=== PATIENT | female | born 1955 | race Hispanic/Latino ===

== ENCOUNTER 2018-01-17 16:24 | Emergency (ER) | payer BC, MEDICARE ==
[2018-01-17] MEDS ORDERED: ACETAMINOPHEN-CODEINE 300/30MG TAB ONE (17:37)
[2018-01-17] MEDS ORDERED: DEXAMETHASONE SOD PHOSPHATE 10MG/ML 1ML VIAL ONE (17:37)
[2018-01-17] MEDS ORDERED: CYCLOBENZAPRINE HCL 10 MG TABLET ONE (17:37)
== END 2018-01-17 18:56 | disposition home or self-care (01) ==
LOC: EDH 16:24
DX: M54.32 Sciatica, left side (principal); J45.909 Unspecified asthma, uncomplicated; I10 Essential (primary) hypertension; E78.5 Hyperlipidemia, unspecified; K21.9 Gastro-esophageal reflux disease without esophagitis
CPT/HCPCS: 96372; 99283; J1100

== ENCOUNTER 2018-09-03 23:54 | Emergency (ER) | payer BC, MEDICARE, OTHER ==
[2018-09-04 00:23] LABS: APPEARANCE,URINE Clear (CLEAR); BILIRUBIN,URINE Negative (NEGATIVE); COLOR,URINE Yellow (YELLOW); GLUCOSE, URINE (UA) Negative (NEGATIVE); KETONES,URINE Negative (NEGATIVE); LEUKOCYTE ESTERASE ,URINE Moderate (NEGATIVE); NITRATE,URINE Negative (NEGATIVE); OCCULT BLOOD,URINE Negative (NEGATIVE); PROTEIN,URINE Negative (NEGATIVE); UROBILINOGEN,URINE 0.2 mg/dL (0.2-1.0)
[2018-09-04 00:32] LABS: EOSINOPHILS % (AUTO) 1.7 % (0.0-8.0); HEMATOCRIT 33.9 % (36-48); LYMPHOCYTES % (AUTO) 25.3 % (21.0-51.0); MEAN CORPUSCULAR HEMOGLOBIN 27.5 pg (27.0-33.0); MEAN CORPUSCULAR HGB CONC 33.2 g/dL (32.0-36.0); MEAN CORPUSCULAR VOLUME 82.9 fL (79-99); MONOCYTES % (AUTO) 8.1 % (3.0-13.0); NEUTROPHILS % (AUTO) 63.9 % (40.0-77.0); PLATELET COUNT (AUTO) 334 K/uL (130-400); RED BLOOD CELL COUNT(AUTO) 4.09 MIL/uL (4.00-5.50); RED CELL DISTRIBUTION WIDTH 13.7 % (11.0-15.5); WHITE BLOOD COUNT (AUTO) 9.4 K/uL (4.8-10.8)
[2018-09-04 00:37] LABS: BACTERIA,URINE Rare /HPF (None Seen); RBC,URINE 0-1 /HPF (0-1); SQUAMOUS EPITHELIAL CELL,UR Moderate /HPF (0-2)
[2018-09-04 00:53] LABS: CREATININE 1.1 mg/dL (0.5-1.5)
[2018-09-04 00:57] LABS: ALBUMIN 3.3 g/dL (3.5-5.0); BILIRUBIN,TOTAL 0.3 mg/dL (0.2-1.0); TOTAL PROTEIN, SERUM 7.9 g/dL (6.0-8.3)
[2018-09-04] MEDS ORDERED: DEXAMETHASONE SOD PHOSPHATE 4 MG/ML 1ML VIAL ONE (01:00)
[2018-09-04] MEDS ORDERED: SODIUM CHLORIDE 0.9% 1000ML 1,000 ML IV ONE (01:00)
[2018-09-04] MEDS ORDERED: IPRATROPIUM/ALBUTEROL SULFATE 3 ML SOLUTION IH ONE (01:09)
[2018-09-04] MEDS ORDERED: MORPHINE SULFATE 4 MG/1ML SYG ONE (01:32)
[2018-09-04] MEDS ORDERED: METRONIDAZOLE 500 MG TABLET ONE (02:19)
[2018-09-04] MEDS ORDERED: LEVOFLOXACIN 500 MG TABLET ONE (02:20)
[2018-09-04] MEDS ORDERED: HYDROCODONE/ACETAMINOPHEN 10/325 MG TAB ONE (02:21)
== END 2018-09-04 02:43 | disposition home or self-care (01) ==
LOC: EDH 23:54
DX: K57.92 Diverticulitis of intestine, part unspecified, without perforation or abscess without bleeding (principal); K21.9 Gastro-esophageal reflux disease without esophagitis; I10 Essential (primary) hypertension; J45.909 Unspecified asthma, uncomplicated; Z98.890 Other specified postprocedural states
CPT/HCPCS: 36415; 71045; 74176; 80053; 81001; 83690; 85025; 94640; 96361; 96374; 96375; 99284; J1100; J2270; J7030

== ENCOUNTER → 2018-10-04 | Outpatient (CLI) | payer OTHER ==
[~2018-10-04] MED LIST: IOHEXOL 350 MG/ML 100ML INFUS..BTL IV ONE
== END | disposition home or self-care (01) ==
LOC: RAH 09:39
PROVIDERS: ATTEND Internal Medicine Gastroenterology
DX: K57.30 Diverticulosis of large intestine without perforation or abscess without bleeding (principal); C18.7 Malignant neoplasm of sigmoid colon; K86.89 Other specified diseases of pancreas; K76.89 Other specified diseases of liver
CPT/HCPCS: 71270; 74178; Q9967

== ENCOUNTER 2018-11-29 21:44 | Observation (INO) | payer OTHER ==
[~2018-11-29] VITALS: Ht 154.9 cm; Wt 101.6 kg
[2018-11-29 22:29] LABS: APPEARANCE,URINE SL CLOUDY (CLEAR); BILIRUBIN,URINE NEGATIVE (NEGATIVE); COLOR,URINE YELLOW (YELLOW); GLUCOSE, URINE (UA) NEGATIVE (NEGATIVE); KETONES,URINE NEGATIVE (NEGATIVE); LEUKOCYTE ESTERASE ,URINE LARGE (NEGATIVE); NITRATE,URINE NEGATIVE (NEGATIVE); OCCULT BLOOD,URINE TRACE-LYSED (NEGATIVE); PH,URINE 5.5 (5.0-8.0); PROTEIN,URINE TRACE mg/dL (NEGATIVE)
[2018-11-29] MEDS ORDERED: ZOSYN 3.375GM+NS 50ML 50 ML IV ONE (22:52)
[2018-11-29] MEDS ORDERED: ACETAMINOPHEN EXTRA STRENGTH 500 MG TABLET ONE (22:52)
[2018-11-29 22:56] LABS: BASOPHILS % (AUTO) 1.1 % (0.0-5.0); EOSINOPHILS % (AUTO) 0.4 % (0.0-8.0); HEMATOCRIT 26.3 % (36-48); LYMPHOCYTES % (AUTO) 14.1 % (21.0-51.0); MEAN CORPUSCULAR VOLUME 81.8 fL (79-99); NEUTROPHILS % (AUTO) 77.4 % (40.0-77.0); PLATELET COUNT (AUTO) 481 K/uL (130-400); RED BLOOD CELL COUNT(AUTO) 3.21 MIL/uL (4.00-5.50); RED CELL DISTRIBUTION WIDTH 14.5 % (11.0-15.5); WHITE BLOOD COUNT (AUTO) 10.5 K/uL (4.8-10.8)
[2018-11-29 23:01] LABS: BACTERIA,URINE Few /HPF (None Seen)
[2018-11-29 23:11] LABS: INR 1.05 (0.85-1.15); PARTIAL THROMBOPLASTIN TIME 32.7 SEC (26.3-35.5)
[2018-11-29 23:12] LABS: CARBON DIOXIDE 29 mmol/L (21-32); CHLORIDE 96 mmol/L (101-111); CREATININE 1.3 mg/dL (0.5-1.5); GLOMERULAR FILTR. RATE CALC 44 mL/min (>60); GLUCOSE,RANDOM 116 mg/dL (70-105); POTASSIUM 3.1 mmol/L (3.5-5.1); SODIUM SERUM 135 mmol/L (136-145); UREA NITROGEN, BLOOD 26 mg/dL (7-18)
[2018-11-29] MEDS ORDERED: IOHEXOL-350 75 ML VIAL IV ONE (23:21)
[2018-11-29 23:22] LABS: ALANINE AMINOTRANSFERASE 41 U/L (12-78); ALBUMIN 2.6 g/dL (3.5-5.0); ASPARTATE AMINOTRANSFERASE 60 U/L (10-37); BILIRUBIN,TOTAL 0.3 mg/dL (0.2-1.0); CREATINE KINASE, TOTAL 14 U/L (21-232); MYOGLOBIN 31 ng/mL (10-92); TOTAL PROTEIN, SERUM 7.7 g/dL (6.0-8.3); TROPONIN I < 0.04 ng/mL (0.00-0.06)
[2018-11-30 08:12] VITALS: BP 125/74
[2018-11-30 08:59] LABS: BASOPHILS % (AUTO) 0.6 % (0.0-5.0); EOSINOPHILS % (AUTO) 0.4 % (0.0-8.0); HEMATOCRIT 24.2 % (36-48); LYMPHOCYTES % (AUTO) 11.3 % (21.0-51.0); MEAN CORPUSCULAR HEMOGLOBIN 27.9 pg (27.0-33.0); MEAN CORPUSCULAR HGB CONC 34.3 g/dL (32.0-36.0); MEAN CORPUSCULAR VOLUME 81.4 fL (79-99); MONOCYTES % (AUTO) 6.3 % (3.0-13.0); NEUTROPHILS % (AUTO) 81.4 % (40.0-77.0); PLATELET COUNT (AUTO) 422 K/uL (130-400); RED BLOOD CELL COUNT(AUTO) 2.97 MIL/uL (4.00-5.50); RED CELL DISTRIBUTION WIDTH 14.7 % (11.0-15.5)
[2018-11-30 09:15] LABS: ALBUMIN 2.4 g/dL (3.5-5.0); BILIRUBIN,TOTAL 0.5 mg/dL (0.2-1.0); CREATININE 1.2 mg/dL (0.5-1.5); POTASSIUM 3.1 mmol/L (3.5-5.1); TOTAL PROTEIN, SERUM 7.3 g/dL (6.0-8.3)
[2018-11-30] MEDS ORDERED: HYDR25TA PO (09:26)
[2018-11-30] MEDS ORDERED: FERR325T22 PO (09:26)
[2018-11-30] MEDS ORDERED: TYL3B PO (09:26)
[2018-11-30 11:34] VITALS: BP 130/54
[2018-11-30] MEDS: METRONIDAZOLE 500MG/100ML BAG 100 ML IVPB SCH ×2 (12:25→18:51)
[2018-11-30] MEDS: ZOSYN 3.375GM+NS 50ML 50 ML IV SCH ×2 (12:25→21:04)
[2018-11-30 16:23] VITALS: BP 98/60
[2018-11-30] MEDS ORDERED: ONDANSETRON HCL 4 MG/2 ML VIAL IVP PRN (19:15)
[2018-11-30 19:30] VITALS: BP 120/62
[2018-11-30] MEDS: SODIUM CHLORIDE 0.9% 1000ML 1,000 ML IV SCH (21:04)
[2018-11-30] MEDS: MORPHINE SULFATE 2 MG/ML 1ML SYG IVP PRN (22:40)
[2018-11-30] MEDS ORDERED: POTASSIUM CHLORIDE 10MEQ/100ML 100 ML IV ONE (23:09)
[2018-11-30] MEDS ORDERED: LIDOCAINE HCL-MPF 1% 2ML VIAL ONE (23:09)
[2018-11-30 23:12] VITALS: BP 111/57
[2018-12-01] MEDS ORDERED: POTASSIUM CHLORIDE 20MEQ/100ML 100 ML IV PRN (00:15)
[2018-12-01] MEDS ORDERED: POTASSIUM CHLORIDE 20 MEQ ERTAB PO PRN (00:15)
[2018-12-01] MEDS ORDERED: POTASSIUM CHLORIDE 10% ELIXIR 20 MEQ/15 ML UDCUP PO PRN (00:15)
[2018-12-01] MEDS ORDERED: LIDOCAINE HCL-MPF 1% 2ML VIAL IVP PRN (00:15)
[2018-12-01] MEDS: METRONIDAZOLE 500MG/100ML BAG 100 ML IVPB SCH ×3 (02:00→17:02)
[2018-12-01 04:20] VITALS: BP 115/60
[2018-12-01 05:29] LABS: CREATININE 1.1 mg/dL (0.5-1.5); POTASSIUM 3.3 mmol/L (3.5-5.1)
[2018-12-01 05:33] LABS: HEMATOCRIT 22.4 % (36-48); MEAN CORPUSCULAR HGB CONC 33.9 g/dL (32.0-36.0); MEAN CORPUSCULAR VOLUME 82.6 fL (79-99); PLATELET COUNT (AUTO) 394 K/uL (130-400); RED BLOOD CELL COUNT(AUTO) 2.71 MIL/uL (4.00-5.50); RED CELL DISTRIBUTION WIDTH 14.4 % (11.0-15.5); WHITE BLOOD COUNT (AUTO) 8.6 K/uL (4.8-10.8)
[2018-12-01] MEDS: ZOSYN 3.375GM+NS 50ML 50 ML IV SCH ×3 (06:03→21:19)
[2018-12-01] MEDS: SODIUM CHLORIDE 0.9% 1000ML 1,000 ML IV SCH (06:04)
[2018-12-01] MEDS: MORPHINE SULFATE 2 MG/ML 1ML SYG IVP PRN ×4 (07:15→21:30)
[2018-12-01 08:00] VITALS: BP 129/73
[2018-12-01] MEDS: FAMOTIDINE/PF 20 MG/2 ML VIAL IV SCH (08:55)
[2018-12-01] MEDS: ENOXAPARIN SODIUM 30 MG/0.3 ML SQ SCH (08:55)
[2018-12-01] MEDS ORDERED: PANTOPRAZOLE 40 MG/VIAL IVP SCH (09:00)
[2018-12-01 12:00] VITALS: BP 133/62
[2018-12-01 12:43] LABS: HEMATOCRIT 24.1 % (36-48)
[2018-12-01 16:00] VITALS: BP 118/62
[2018-12-01 19:30] VITALS: BP 104/61
[2018-12-01 20:21] LABS: % IRON SATURATION 8.9 % (22-44)
[2018-12-02 00:06] VITALS: BP 107/61
[2018-12-02] MEDS: METRONIDAZOLE 500MG/100ML BAG 100 ML IVPB SCH ×2 (02:22→10:46)
[2018-12-02 04:00] VITALS: BP 148/64
[2018-12-02 04:46] LABS: BASOPHILS % (AUTO) 1.1 % (0.0-5.0); EOSINOPHILS % (AUTO) 1.2 % (0.0-8.0); HEMATOCRIT 24.8 % (36-48); LYMPHOCYTES % (AUTO) 19.7 % (21.0-51.0); MEAN CORPUSCULAR HEMOGLOBIN 28.1 pg (27.0-33.0); MEAN CORPUSCULAR HGB CONC 33.9 g/dL (32.0-36.0); MEAN CORPUSCULAR VOLUME 82.9 fL (79-99); MONOCYTES % (AUTO) 7.4 % (3.0-13.0); NEUTROPHILS % (AUTO) 70.6 % (40.0-77.0); PLATELET COUNT (AUTO) 474 K/uL (130-400); RED BLOOD CELL COUNT(AUTO) 2.99 MIL/uL (4.00-5.50); RED CELL DISTRIBUTION WIDTH 14.5 % (11.0-15.5); WHITE BLOOD COUNT (AUTO) 7.4 K/uL (4.8-10.8)
[2018-12-02] MEDS: ZOSYN 3.375GM+NS 50ML 50 ML IV SCH ×2 (05:00→14:36)
[2018-12-02 05:06] LABS: POTASSIUM 3.7 mmol/L (3.5-5.1)
[2018-12-02 08:00] VITALS: BP 121/64
[2018-12-02] MEDS: FAMOTIDINE/PF 20 MG/2 ML VIAL IV SCH (10:50)
[2018-12-02 11:00] VITALS: BP 119/68
[2018-12-02] MEDS: ENOXAPARIN SODIUM 30 MG/0.3 ML SQ SCH (11:04)
[2018-12-02] MEDS ORDERED: FERROUS SULFATE 325 MG TABLET.DR PO SCH (14:00)
[2018-12-02 16:00] VITALS: BP 126/66
== END 2018-12-02 19:40 | disposition home or self-care (01) ==
LOC: EDH 21:44 → EDHIP 11-30 07:10 → 4CH 11-30 07:52
PROVIDERS: ADMIT Internal Medicine; ATTEND Internal Medicine
DX: K62.5 Hemorrhage of anus and rectum (principal); A41.9 Sepsis, unspecified organism; D64.9 Anemia, unspecified; E66.01 Morbid (severe) obesity due to excess calories; E78.5 Hyperlipidemia, unspecified; I10 Essential (primary) hypertension; J45.909 Unspecified asthma, uncomplicated; K57.91 Diverticulosis of intestine, part unspecified, without perforation or abscess with bleeding; K64.8 Other hemorrhoids; N39.0 Urinary tract infection, site not specified; Z85.048 Personal history of other malignant neoplasm of rectum, rectosigmoid junction, and anus; Z90.49 Acquired absence of other specified parts of digestive tract
CPT/HCPCS: 36415 ×4; 71045; 74021; 74177; 80048 ×2; 80053 ×2; 81001; 82550; 83540; 83550; 83605; 83874; 84484; 85014; 85018; 85025 ×3; 85027; 85610; 85730; 87040 ×2; 87088; 93005; 96365; 96366 ×3; 96368; 96372; 96375 ×2; 96376 ×2; 99284; G0378 ×60; J1650 ×2; J2405; J2543 ×8; J3480; J3490 ×12; J7030; Q9967; C9113

== ENCOUNTER 2018-12-13 07:25 | Day surgery (SDC) | payer OTHER ==
[2018-12-13] VITALS (25 sets, daily range): BP systolic 103–136; BP diastolic 47–88
[~2018-12-13] VITALS: Ht 154.3 cm; Wt 101.2 kg
[~2018-12-13 07:25] MED LIST changes: +ALBU0.63 IH; +FERR325T22 PO; +HYDR25TA PO; -IOHEXOL 350 MG/ML 100ML INFUS..BTL IV ONE; +SODIUM CHLORIDE 0.9% 1000ML 1,000 ML IV ONE; +STOOL SOFTNER PO; +TYL3B PO; +[UNRECOGNIZED DRUG - CODE] PO
[2018-12-13] MEDS ORDERED: PROPOFOL 10 MG/ML 20ML VIAL IV ONE (09:26)
[2018-12-13] MEDS ORDERED: LEVOFLOXACIN 750 MG/D5W 150 ML 150 ML IV SCH (10:00)
[2018-12-13] MEDS ORDERED: ZOSYN 3.375GM+NS 50ML 50 ML IV SCH (10:45)
== END 2018-12-13 15:01 | disposition home or self-care (01) ==
LOC: DAH 07:25 → ENDO 07:25
PROVIDERS: ATTEND Internal Medicine
DX: K86.2 Cyst of pancreas (principal); K31.89 Other diseases of stomach and duodenum; K57.30 Diverticulosis of large intestine without perforation or abscess without bleeding; K29.30 Chronic superficial gastritis without bleeding; C18.7 Malignant neoplasm of sigmoid colon; D64.9 Anemia, unspecified; I10 Essential (primary) hypertension; K64.9 Unspecified hemorrhoids; J45.909 Unspecified asthma, uncomplicated; K52.9 Noninfective gastroenteritis and colitis, unspecified; M19.90 Unspecified osteoarthritis, unspecified site; Z98.890 Other specified postprocedural states; Z79.899 Other long term (current) drug therapy
CPT/HCPCS: 36415; 43238; 82150; 82378; 88108; 88305; A4215; A4606; J2543; J2704; J7030; J1956

== ENCOUNTER 2018-12-15 22:10 | Emergency (ER) | payer OTHER ==
[~2018-12-15 22:10] MED LIST changes: -SODIUM CHLORIDE 0.9% 1000ML 1,000 ML IV ONE
[2018-12-15 22:47] LABS: APPEARANCE,URINE Clear (CLEAR); BILIRUBIN,URINE Small (NEGATIVE); COLOR,URINE Dark Yellow (YELLOW); GLUCOSE, URINE (UA) Negative (NEGATIVE); KETONES,URINE Trace mg/dL (NEGATIVE); LEUKOCYTE ESTERASE ,URINE Moderate (NEGATIVE); NITRATE,URINE Negative (NEGATIVE); OCCULT BLOOD,URINE Negative (NEGATIVE); PROTEIN,URINE Trace mg/dL (NEGATIVE)
[2018-12-15 22:59] LABS: RBC,URINE 0-1 /HPF (0-1)
[2018-12-15 23:00] LABS: BACTERIA,URINE Few /HPF (None Seen); MUCUS,URINE Moderate LPF (None Seen); SQUAMOUS EPITHELIAL CELL,UR Moderate /HPF (0-2)
[2018-12-15 23:17] LABS: CARBON DIOXIDE 28 mmol/L (21-32); CHLORIDE 98 mmol/L (101-111); CREATININE 1.1 mg/dL (0.5-1.5); GLOMERULAR FILTR. RATE CALC 53 mL/min (>60); GLUCOSE,RANDOM 127 mg/dL (70-105); POTASSIUM 3.8 mmol/L (3.5-5.1); SODIUM SERUM 135 mmol/L (136-145); UREA NITROGEN, BLOOD 22 mg/dL (7-18)
[2018-12-15 23:28] LABS: ALANINE AMINOTRANSFERASE 15 U/L (12-78); ALBUMIN 2.9 g/dL (3.5-5.0); ASPARTATE AMINOTRANSFERASE 16 U/L (10-37); BASOPHILS % (AUTO) 1.1 % (0.0-5.0); BILIRUBIN,TOTAL 0.5 mg/dL (0.2-1.0); CREATINE KINASE, TOTAL 8 U/L (21-232); EOSINOPHILS % (AUTO) 0.3 % (0.0-8.0); MEAN CORPUSCULAR HEMOGLOBIN 27.1 pg (27.0-33.0); MEAN CORPUSCULAR HGB CONC 33.3 g/dL (32.0-36.0); MEAN CORPUSCULAR VOLUME 81.6 fL (79-99); MYOGLOBIN 25 ng/mL (10-92); NEUTROPHILS % (AUTO) 76.6 % (40.0-77.0); PLATELET COUNT (AUTO) 398 K/uL (130-400); TOTAL PROTEIN, SERUM 7.9 g/dL (6.0-8.3); TROPONIN I < 0.04 ng/mL (0.00-0.06); WHITE BLOOD COUNT (AUTO) 10.3 K/uL (4.8-10.8)
[2018-12-15] MEDS ORDERED: ZOSYN 3.375GM+NS 50ML 50 ML IV ONE (23:30)
[2018-12-15 23:33] LABS: INR 1.09 (0.85-1.15); PARTIAL THROMBOPLASTIN TIME 31.5 SEC (26.3-35.5); PROTHROMBIN TIME 11.4 SEC (9.6-11.6)
[2018-12-16] MEDS ORDERED: IOHEXOL-350 75 ML VIAL IV ONE (00:08)
[2018-12-16] MEDS ORDERED: FENTANYL CITRATE PF 50 MCG/1 ML 2ML VIAL ONE ×2 (01:42→05:39)
[2018-12-16] MEDS ORDERED: VANCOMYCIN 1GM+NS 250ML 250 ML IV ONE (02:54)
== END 2018-12-16 05:47 ==
LOC: EDH 22:10
DX: N73.9 Female pelvic inflammatory disease, unspecified (principal); M70.11 Bursitis, right hand; J45.909 Unspecified asthma, uncomplicated; K21.9 Gastro-esophageal reflux disease without esophagitis; E78.5 Hyperlipidemia, unspecified; I10 Essential (primary) hypertension; Z88.1 Allergy status to other antibiotic agents; Z85.038 Personal history of other malignant neoplasm of large intestine
CPT/HCPCS: 36415; 71045; 73030; 73060; 74177; 80053; 81001; 82550; 83605; 83874; 84484; 85025; 85610; 85730; 87040 ×2; 87088; 93005; 96365; 96366; 96367; 96375; 96376; 99285; J2543; J3010 ×2; J3370; Q9967

== ENCOUNTER → 2019-04-26 | Outpatient (CLI) | payer OTHER ==
[~2019-04-26] MED LIST changes: +IOHEXOL-350 75 ML VIAL IV ONE
== END | disposition home or self-care (01) ==
LOC: RAH 07:27
PROVIDERS: ATTEND Internal Medicine Gastroenterology
DX: K57.30 Diverticulosis of large intestine without perforation or abscess without bleeding (principal); K86.2 Cyst of pancreas; K76.89 Other specified diseases of liver
CPT/HCPCS: 74178; Q9967

== ENCOUNTER → 2019-06-09 | Outpatient (CLI) | payer OTHER ==
[~2019-06-09] MED LIST changes: -IOHEXOL-350 75 ML VIAL IV ONE
== END | disposition home or self-care (01) ==
LOC: RAH 10:16
PROVIDERS: ATTEND Internal Medicine
DX: M99.13 Subluxation complex (vertebral) of lumbar region (principal); M54.16 Radiculopathy, lumbar region; M25.78 Osteophyte, vertebrae
CPT/HCPCS: 72100

== ENCOUNTER → 2019-11-03 | Outpatient (CLI) | payer OTHER ==
[~2019-11-03] MED LIST changes: +GADODIAMIDE 10 MMOL/20 ML VIAL IV ONE; +[UNRECOGNIZED DRUG - CODE] PO; -[UNRECOGNIZED DRUG - CODE] PO
== END | disposition home or self-care (01) ==
LOC: RAH 07:48
PROVIDERS: ATTEND Internal Medicine Gastroenterology
DX: K86.2 Cyst of pancreas (principal)
CPT/HCPCS: 74183; A9579

== ENCOUNTER 2020-03-25 05:41 | Emergency (ER) | payer OTHER ==
[~2020-03-25 05:41] MED LIST changes: -GADODIAMIDE 10 MMOL/20 ML VIAL IV ONE
[2020-03-25] MEDS ORDERED: MORPHINE SULFATE 4 MG/1ML SYG ONE (06:25)
[2020-03-25 08:00] LABS: ALBUMIN 3.4 g/dL (3.5-5.0); BILIRUBIN,TOTAL 0.2 mg/dL (0.2-1.0); CREATININE 1.3 mg/dL (0.5-1.5); POTASSIUM 3.2 mmol/L (3.5-5.1); TOTAL PROTEIN, SERUM 7.7 g/dL (6.0-8.3)
[2020-03-25 09:23] LABS: BASOPHILS % (AUTO) 0.6 % (0.0-5.0); EOSINOPHILS % (AUTO) 0.9 % (0.0-8.0); LYMPHOCYTES % (AUTO) 18.5 % (21.0-51.0); MEAN CORPUSCULAR HEMOGLOBIN 28.5 pg (27.0-33.0); MEAN CORPUSCULAR HGB CONC 33.2 g/dL (32.0-36.0); MEAN CORPUSCULAR VOLUME 85.9 fL (79-99); MONOCYTES % (AUTO) 5.3 % (3.0-13.0); NEUTROPHILS % (AUTO) 74.4 % (40.0-77.0); PLATELET COUNT (AUTO) 315 K/uL (130-400); RED BLOOD CELL COUNT(AUTO) 3.96 MIL/uL (4.00-5.50); RED CELL DISTRIBUTION WIDTH 13.5 % (11.0-15.5); WHITE BLOOD COUNT (AUTO) 11.2 K/uL (4.8-10.8)
[2020-03-25] MEDS ORDERED: KETOROLAC TROMETHAMINE 30MG/ML ONE (09:54)
== END 2020-03-25 10:30 | disposition home or self-care (01) ==
LOC: EDH 05:41
DX: M10.071 Idiopathic gout, right ankle and foot (principal); J45.909 Unspecified asthma, uncomplicated; E78.5 Hyperlipidemia, unspecified; I10 Essential (primary) hypertension; Z88.1 Allergy status to other antibiotic agents
CPT/HCPCS: 36415; 73630; 80053; 84550; 85025; 96372 ×2; 99284; J1885; J2270

== ENCOUNTER → 2020-04-26 | Outpatient (CLI) | payer OTHER | END | disposition home or self-care (01) | LOC: RAH 13:20 | PROVIDERS: ATTEND Internal Medicine | DX: Z12.31 Encounter for screening mammogram for malignant neoplasm of breast (principal); N64.89 Other specified disorders of breast | CPT/HCPCS: 77067 ==

== ENCOUNTER 2020-08-29 20:33 | Emergency (ER) | payer OTHER ==
[2020-08-29] MEDS ORDERED: KETOROLAC TROMETHAMINE 60 MG/2 ML VIAL ONE (20:53)
[2020-08-29] MEDS ORDERED: HYDROCODONE/ACETAMINOPHEN 10/325 MG TAB ONE (20:54)
[2020-08-29] MEDS ORDERED: CYCLOBENZAPRINE HCL 10 MG TABLET ONE (20:54)
== END 2020-08-29 21:53 | disposition home or self-care (01) ==
LOC: EDH 20:33
DX: M54.42 Lumbago with sciatica, left side (principal); M51.36 Other intervertebral disc degeneration, lumbar region; J45.909 Unspecified asthma, uncomplicated; K21.9 Gastro-esophageal reflux disease without esophagitis; I10 Essential (primary) hypertension; E78.5 Hyperlipidemia, unspecified; Z88.1 Allergy status to other antibiotic agents
CPT/HCPCS: 72100; 96372; 99283; J1885

== ENCOUNTER 2020-12-08 08:56 | Emergency (ER) | payer OTHER ==
[2020-12-08] MEDS ORDERED: BENZONATATE 100 MG CAPSULE PO ONE (09:54)
== END 2020-12-08 10:41 | disposition home or self-care (01) ==
LOC: EDH 08:56
DX: J20.9 Acute bronchitis, unspecified (principal); J01.90 Acute sinusitis, unspecified; J45.901 Unspecified asthma with (acute) exacerbation; E78.5 Hyperlipidemia, unspecified; I10 Essential (primary) hypertension; Z88.1 Allergy status to other antibiotic agents; Z98.890 Other specified postprocedural states
CPT/HCPCS: 71046

== ENCOUNTER → 2020-12-09 | Outpatient (CLI) | payer OTHER ==
[~2020-12-09] MED LIST changes: +GADOTERATE MEGLUMINE 10 MMOL/20 ML VIAL IV ONE
== END | disposition home or self-care (01) ==
LOC: RAH 07:54
PROVIDERS: ATTEND Internal Medicine Gastroenterology
DX: K86.2 Cyst of pancreas (principal)
CPT/HCPCS: 74183; A9575

== ENCOUNTER 2021-01-21 09:35 | Day surgery (SDC) | payer OTHER ==
[2021-01-21] VITALS (7 sets, daily range): BP systolic 107–129; BP diastolic 57–74
[~2021-01-21] VITALS: Ht 160 cm; Wt 108.0 kg
[~2021-01-21 09:35] MED LIST changes: +ALLO100T PO; +CYAN250014 PO; -FERR325T22 PO; +FLUT16H NS; -GADOTERATE MEGLUMINE 10 MMOL/20 ML VIAL IV ONE; -HYDR25TA PO; +LACT10SO5 PO; +MULT-1203 PO; +SODIUM CHLORIDE 0.9% 1000ML 1,000 ML IV ONE; -STOOL SOFTNER PO; -TYL3B PO; -[UNRECOGNIZED DRUG - CODE] PO
[2021-01-21] MEDS ORDERED: LEVOFLOXACIN 500 MG/D5W 100 ML 100 ML ONE (11:19)
[2021-01-21] MEDS ORDERED: PROPOFOL 10 MG/ML 20ML VIAL IV ONE (11:20)
[2021-01-21] MEDS ORDERED: CLINDAMYCIN 600 MG/D5% WATER 50 ML IV ONE (11:27)
== END 2021-01-21 12:37 | disposition home or self-care (01) ==
LOC: DAH 09:35 → ENDO 09:35
PROVIDERS: ATTEND Internal Medicine Gastroenterology
DX: K86.2 Cyst of pancreas (principal); Z20.822 Contact with and (suspected) exposure to COVID-19; K57.30 Diverticulosis of large intestine without perforation or abscess without bleeding; I10 Essential (primary) hypertension; E66.9 Obesity, unspecified; K21.9 Gastro-esophageal reflux disease without esophagitis; M10.9 Gout, unspecified; M19.90 Unspecified osteoarthritis, unspecified site; D64.9 Anemia, unspecified; K59.00 Constipation, unspecified; Z79.01 Long term (current) use of anticoagulants; Z88.8 Allergy status to other drugs, medicaments and biological substances; Z80.0 Family history of malignant neoplasm of digestive organs; J45.909 Unspecified asthma, uncomplicated; Z98.890 Other specified postprocedural states; Z85.038 Personal history of other malignant neoplasm of large intestine; Z68.41 Body mass index [BMI] 40.0-44.9, adult
CPT/HCPCS: 36415; 43238; 82150; 82378; 87635; A4215 ×3; A4216; A4221; A4222; A4223; A4606; A4620; A4657; A4663; C9803; J1956; J2704; J3490; J7030

== ENCOUNTER 2021-04-06 01:38 | Emergency (ER) | payer OTHER ==
[~2021-04-06] VITALS: Ht 160 cm; Wt 108.4 kg
[~2021-04-06 01:38] MED LIST changes: -SODIUM CHLORIDE 0.9% 1000ML 1,000 ML IV ONE
[2021-04-06 07:45] LABS: BASOPHILS % (AUTO) 0.9 % (0.0-5.0); EOSINOPHILS % (AUTO) 3.2 % (0.0-8.0); HEMATOCRIT 33.2 % (36-48); LYMPHOCYTES % (AUTO) 35.7 % (21.0-51.0); MEAN CORPUSCULAR HEMOGLOBIN 27.4 pg (27.0-33.0); MEAN CORPUSCULAR HGB CONC 31.3 g/dL (32.0-36.0); MEAN CORPUSCULAR VOLUME 87.6 fL (79-99); MONOCYTES % (AUTO) 6.8 % (3.0-13.0); NEUTROPHILS % (AUTO) 53.2 % (40.0-77.0); PLATELET COUNT (AUTO) 277 K/uL (130-400); RED BLOOD CELL COUNT(AUTO) 3.79 MIL/uL (4.00-5.50); RED CELL DISTRIBUTION WIDTH 14.6 % (11.0-15.5); WHITE BLOOD COUNT (AUTO) 5.9 K/uL (4.8-10.8)
[2021-04-06] MEDS ORDERED: ONDANSETRON ODT 4MG TAB ONE (07:46)
[2021-04-06] MEDS ORDERED: MORPHINE 4 MG SYG ONE (07:47)
[2021-04-06 07:58] LABS: ALBUMIN 3.5 g/dL (3.5-5.0); BILIRUBIN,TOTAL 0.2 mg/dL (0.2-1.0); POTASSIUM 4.3 mmol/L (3.5-5.1); TOTAL PROTEIN, SERUM 7.6 g/dL (6.0-8.3)
[2021-04-06 08:05] VITALS: BP 142/84
== END 2021-04-06 08:01 | disposition home or self-care (01) ==
LOC: EDH 01:38
DX: M54.16 Radiculopathy, lumbar region (principal); M79.604 Pain in right leg; E66.01 Morbid (severe) obesity due to excess calories; G89.29 Other chronic pain; M54.5 Low back pain; I10 Essential (primary) hypertension; M10.9 Gout, unspecified; J45.909 Unspecified asthma, uncomplicated; Z79.899 Other long term (current) drug therapy; Z85.038 Personal history of other malignant neoplasm of large intestine; Z88.1 Allergy status to other antibiotic agents; Z68.41 Body mass index [BMI] 40.0-44.9, adult
CPT/HCPCS: 36415; 80053; 83735; 85025; 96372; 99283; J2270

== ENCOUNTER → 2021-09-22 | Outpatient (CLI) | payer OTHER ==
[~2021-09-22] MED LIST changes: +IOHEXOL-350 50ML VIAL IV ONE; +IOHEXOL-350 75 ML VIAL IV ONE
== END | disposition home or self-care (01) ==
LOC: RAH 07:49
PROVIDERS: ATTEND Internal Medicine Gastroenterology
DX: K86.2 Cyst of pancreas (principal); K57.30 Diverticulosis of large intestine without perforation or abscess without bleeding; K42.9 Umbilical hernia without obstruction or gangrene; K76.0 Fatty (change of) liver, not elsewhere classified; K76.89 Other specified diseases of liver; I72.8 Aneurysm of other specified arteries
CPT/HCPCS: 74170; Q9967 ×2

== ENCOUNTER → 2022-04-06 | Outpatient (CLI) | payer OTHER ==
[~2022-04-06] MED LIST changes: -IOHEXOL-350 50ML VIAL IV ONE; -IOHEXOL-350 75 ML VIAL IV ONE
== END | disposition home or self-care (01) ==
LOC: RAH 09:28
PROVIDERS: ATTEND Internal Medicine Gastroenterology
DX: K86.2 Cyst of pancreas (principal); K76.0 Fatty (change of) liver, not elsewhere classified; K76.89 Other specified diseases of liver
CPT/HCPCS: 76700

== ENCOUNTER → 2022-04-08 | Outpatient (CLI) | payer OTHER | END | disposition home or self-care (01) | LOC: RAH 08:12 | PROVIDERS: ATTEND Internal Medicine | DX: Z12.31 Encounter for screening mammogram for malignant neoplasm of breast (principal) | CPT/HCPCS: 77067 ==

== ENCOUNTER → 2023-07-07 | Outpatient (CLI) | payer OTHER ==
[~2023-07-07] MED LIST changes: +IOHEXOL-350 75 ML VIAL IV ONE
== END | disposition home or self-care (01) ==
LOC: RAH 08:26
PROVIDERS: ATTEND Internal Medicine Gastroenterology
DX: K86.2 Cyst of pancreas (principal); K44.9 Diaphragmatic hernia without obstruction or gangrene; M47.815 Spondylosis without myelopathy or radiculopathy, thoracolumbar region; K76.89 Other specified diseases of liver; N28.89 Other specified disorders of kidney and ureter; K57.30 Diverticulosis of large intestine without perforation or abscess without bleeding; I70.0 Atherosclerosis of aorta
CPT/HCPCS: 74170; Q9967

== ENCOUNTER 2023-11-04 03:34 | Emergency (ER) | payer OTHER ==
[~2023-11-04 03:34] MED LIST changes: -IOHEXOL-350 75 ML VIAL IV ONE
[2023-11-04 05:09] LABS: BASOPHILS # (AUTO) 0.07 K/uL (0.00-0.20); EOSINOPHILS # (AUTO) 0.16 K/uL (0.00-0.70); EOSINOPHILS % (AUTO) 2.3 % (0.0-8.0); HEMATOCRIT 29.9 % (36-48); IMMATURE GRANULOCYTE ABSOLUTE 0.01 K/uL (0-1); LYMPHOCYTES # (AUTO) 2.6 K/uL (1.0-4.8); LYMPHOCYTES % (AUTO) 38.1 % (21.0-51.0); MEAN CORPUSCULAR HEMOGLOBIN 29.4 pg (27.0-33.0); MEAN CORPUSCULAR HGB CONC 33.8 g/dL (32.0-36.0); MEAN CORPUSCULAR VOLUME 86.9 fL (79-99); MONOCYTES # (AUTO) 0.6 K/uL (0.1-1.0); MONOCYTES % (AUTO) 8.6 % (3.0-13.0); NEUTROPHILS # (AUTO) 3.4 K/uL (1.8-7.7); NEUTROPHILS % (AUTO) 49.9 % (40.0-77.0); PLATELET COUNT (AUTO) 291 K/uL (130-400); RED BLOOD CELL COUNT(AUTO) 3.44 MIL/uL (4.00-5.50); RED CELL DISTRIBUTION WIDTH 14.5 % (11.0-15.5); WHITE BLOOD COUNT (AUTO) 6.9 K/uL (4.8-10.8)
[2023-11-04] MEDS ORDERED: DICL20GE TP (05:13)
[2023-11-04] MEDS ORDERED: PIRO20CA PO (05:13)
[2023-11-04 05:21] LABS: CREATININE 1.1 mg/dL (0.5-1.0)
[2023-11-04] MEDS: HYDROCODONE/ACETAMINOPHEN 5/325 MG TAB ONE (05:27)
[2023-11-04] MEDS: HYDROCODONE/ACETAMINOPHEN 5/325 MG TAB PO ONE (05:30)
== END 2023-11-04 05:30 | disposition home or self-care (01) ==
LOC: EDH 03:34
DX: M17.12 Unilateral primary osteoarthritis, left knee (principal); I10 Essential (primary) hypertension; J45.909 Unspecified asthma, uncomplicated; Z88.1 Allergy status to other antibiotic agents; Z85.038 Personal history of other malignant neoplasm of large intestine
CPT/HCPCS: 36415; 73564; 80048; 84550; 85025

== ENCOUNTER → 2023-12-29 | Outpatient (CLI) | payer OTHER ==
[~2023-12-29] MED LIST changes: +DICL20GE TP; +PIRO20CA PO
[2023-12-29 16:22] LABS: BASOPHILS # (AUTO) 0.06 K/uL (0.00-0.20); BASOPHILS % (AUTO) 0.9 % (0.0-5.0); EOSINOPHILS # (AUTO) 0.17 K/uL (0.00-0.70); EOSINOPHILS % (AUTO) 2.6 % (0.0-8.0); IMMATURE GRANULOCYTE ABSOLUTE 0.02 K/uL (0-1); LYMPHOCYTES # (AUTO) 2.4 K/uL (1.0-4.8); LYMPHOCYTES % (AUTO) 36.7 % (21.0-51.0); MEAN CORPUSCULAR HGB CONC 31.8 g/dL (32.0-36.0); MEAN CORPUSCULAR VOLUME 91.2 fL (79-99); MONOCYTES # (AUTO) 0.5 K/uL (0.1-1.0); MONOCYTES % (AUTO) 8.3 % (3.0-13.0); NEUTROPHILS # (AUTO) 3.3 K/uL (1.8-7.7); NEUTROPHILS % (AUTO) 51.2 % (40.0-77.0); PLATELET COUNT (AUTO) 317 K/uL (130-400); RED BLOOD CELL COUNT(AUTO) 3.62 MIL/uL (4.00-5.50); WHITE BLOOD COUNT (AUTO) 6.5 K/uL (4.8-10.8)
[2023-12-29 16:35] LABS: INR <= 0.93 (0.85-1.15); PROTHROMBIN TIME 10.6 SEC (9.6-11.6)
[2023-12-29 16:48] LABS: ALBUMIN 3.7 g/dL (3.5-5.0); BILIRUBIN,TOTAL 0.2 mg/dL (0.2-1.0); CREATININE 1.2 mg/dL (0.5-1.0); POTASSIUM 4.3 mmol/L (3.5-5.1)
== END | disposition home or self-care (01) ==
LOC: LAB 15:20
PROVIDERS: ATTEND Internal Medicine
DX: K86.2 Cyst of pancreas (principal); Z86.2 Personal history of diseases of the blood and blood-forming organs and certain disorders involving the immune mechanism
CPT/HCPCS: 36415; 80053; 85025; 85610

== ENCOUNTER → 2024-01-06 | Outpatient (CLI) | payer OTHER ==
[~2024-01-06] MED LIST changes: +IOHEXOL 350 MG/ML 100ML INFUS..BTL IV ONE
== END | disposition home or self-care (01) ==
LOC: RAH 10:28
PROVIDERS: ATTEND Internal Medicine
DX: K76.89 Other specified diseases of liver (principal); K44.9 Diaphragmatic hernia without obstruction or gangrene; M47.815 Spondylosis without myelopathy or radiculopathy, thoracolumbar region; K57.90 Diverticulosis of intestine, part unspecified, without perforation or abscess without bleeding; R22.1 Localized swelling, mass and lump, neck; K86.2 Cyst of pancreas
CPT/HCPCS: 74177; Q9967

== ENCOUNTER → 2024-03-28 | Outpatient (CLI) | payer OTHER ==
[~2024-03-28] MED LIST changes: -IOHEXOL 350 MG/ML 100ML INFUS..BTL IV ONE
== END | disposition home or self-care (01) ==
LOC: RAH 14:28
PROVIDERS: ATTEND Internal Medicine
DX: Z12.31 Encounter for screening mammogram for malignant neoplasm of breast (principal); R92.323 Mammographic fibroglandular density, bilateral breasts
CPT/HCPCS: 77067